=== PATIENT | female | born 1950 | race Caucasian/White ===

== ENCOUNTER 2024-02-24 10:40 | Outpatient (CLI) | payer MEDICARE, SELFPAY ==
[2024-02-24 12:16] LABS: Erythrocyte Sedimentation Rate 16 mm/hr (0-30)
[2024-02-24 14:02] LABS: Hemoglobin A1C 6.4 % (4.0-6.0)
[2024-02-25 11:14] LABS: Rapid Plasma Reagin Ab Titer Non Reactive titer (NonRea<1:1)
[2024-02-25 13:15] LABS: Anti-Centromere B Antibodies <0.2 AI (0.0-0.9); Anti-DNA (DS) Ab Qn <1 IU/mL (0-9); Anti-Jo-1 <0.2 AI (0.0-0.9); Anti-Smith Antibody <0.2 AI (0.0-0.9); Antichromatin Antibodies <0.2 AI (0.0-0.9); Antiscleroderma-70 Antibodies <0.2 AI (0.0-0.9); RNP Antibodies 0.2 AI (0.0-0.9); Sjogren's Anti-SS-A <0.2 AI (0.0-0.9); Sjogren's Anti-SS-B 0.2 AI (0.0-0.9)
== END 2024-02-24 23:59 | disposition home or self-care (01) ==
LOC: LAB 10:42
PROVIDERS: PCP Family Medicine; Visit Provider Specialist
DX: G93.40 Encephalopathy, unspecified (principal); G31.84 Mild cognitive impairment of uncertain or unknown etiology; F33.8 Other recurrent depressive disorders; F41.9 Anxiety disorder, unspecified; E11.9 Type 2 diabetes mellitus without complications
CPT/HCPCS: 36415; 83036; 85651; 86225; 86235; 86593

== ENCOUNTER 2024-03-08 16:55 | Outpatient (CLI) | payer MEDICARE, SELFPAY ==
--- NOTE | 2024-03-08 16:55 | MR_ITS ---
PROCEDURE INFORMATION: Exam: MR Head Without and With Contrast Exam date and time: 03/08/2024 5:12 PM Age: 73 years old Clinical indication: Headache, encephalopathy. TECHNIQUE: Imaging protocol: Magnetic resonance imaging of the head without and with contrast. Contrast material: PROHANCE; Contrast volume: 19 ml; Contrast route: IV; COMPARISON: No relevant prior studies available. FINDINGS: Brain: There are occasional nonspecific foci of high signal abnormality in the rodriges radiata and centrum semiovale, best seen on the flair images. These foci may represent areas of gliosis, demyelination, and/or chronic ischemic change. No evidence of acute infarct. There is moderate cerebral and cerebellar atrophy. Cerebral ventricles: Normal. No ventriculomegaly. Bones: Unremarkable. Paranasal sinuses: Normal as visualized. No acute sinusitis. Mastoid air cells: Normal as visualized. No mastoid effusion. Orbital cavities: Unremarkable. Soft tissues: Unremarkable. There is no abnormal enhancement. IMPRESSION: 1. There are occasional nonspecific foci of high signal abnormality in the rodriges radiata and centrum semiovale, best seen on the flair images. These foci may represent areas of gliosis, demyelination, and/or chronic ischemic change. 2. There is moderate cerebral and cerebellar atrophy.
[2024-03-08 17:31] LABS: Blood Urea Nitrogen 26 mg/dl (7-17); Estimated Glomerular Filt Rate 62 ml/min (>60); GFR (African American) 75 ML/MIN (>60)
[2024-03-08] MEDS: SODIUM CHLORIDE 0.9% 10ML SYR (RAD ONLY) 10 ML IV (19:04)
[2024-03-08] MEDS: GADOTERIDOL INJ 20ML SYRINGE 19 ML IV (19:04)
== END 2024-03-08 23:59 | disposition home or self-care (01) ==
LOC: RAD 16:55
PROVIDERS: PCP Family Medicine; Visit Provider Specialist
DX: G93.40 Encephalopathy, unspecified; G31.84 Mild cognitive impairment of uncertain or unknown etiology; F33.8 Other recurrent depressive disorders; F41.9 Anxiety disorder, unspecified; Z87.891 Personal history of nicotine dependence
CPT/HCPCS: 36415; 70553; 82565; 84520; A9576